=== PATIENT | male | born 1980 | race Caucasian/White ===

== ENCOUNTER 2017-08-14 04:45 | Emergency (ER) | payer SELFPAY ==
[2017-08-14 05:00] VITALS: BP 121/69; PULSE 74; RESP 18; TEMP 97.3; O2SAT 96
== END 2017-08-14 04:55 | disposition left against medical advice (07) ==
LOC: C.ER 04:45
DX: Z02.89 Encounter for other administrative examinations (principal); Z00.00 Encounter for general adult medical examination without abnormal findings